=== PATIENT | female | born 1960 | race Caucasian/White ===

== ENCOUNTER 2017-03-21 21:24 | Emergency (ER) | payer OTHER ==
[~2017-03-21] VITALS: Ht 167.6 cm; Wt 78.9 kg
--- NOTE | 2017-03-21 21:35 | NUR ---
Pt to room, changed into gown and placed on monitor. Pt NSR. Pt c/o non radiating chest pain. Denies SOB, denies N/V. Resp even and unlabored. Dr. Miller at bedside, awaiting further orders.
[2017-03-21] MEDS ORDERED: ASPIRIN 81 MG TAB.CHEW PO ONE (21:45)
[2017-03-21] MEDS ORDERED: NITROGLYCERIN OINT 1 GM PACKET TP ONE ×2 (21:45→22:27)
[2017-03-21] MEDS ORDERED: NITROGLYCERIN 0.4 MG/TAB BOTTLE SL ONE ×2 (21:45→22:27)
[2017-03-21 22:16] LABS: BASOPHILS % (AUTO) 0.5 % (0.0-2.0); EOSINOPHILS % (AUTO) 2.1 % (0.0-7.0); HEMATOCRIT 38.6 % (37-47); HEMOGLOBIN 12.8 G/DL (12.0-16.0); LYMPHOCYTES % (AUTO) 31.9 % (20.5-51.5); MEAN CORPUSCULAR HEMOGLOBIN 31.2 UUG (27.0-31.0); MEAN CORPUSCULAR HGB CONC 33 g/dL (32.0-37.0); MEAN CORPUSCULAR VOLUME 93.8 FL (81.0-99.0); MONOCYTES % (AUTO) 8.2 % (0.0-11.0); NEUTROPHILS % (AUTO) 57.3 % (38.5-71.5); PLATELET COUNT (AUTO) 184 K/UL (150-450); RED BLOOD CELL COUNT(AUTO) 4.11 MIL/UL (4.2-5.4); WHITE BLOOD COUNT (AUTO) 5.4 K/UL (4.0-11.2)
[2017-03-21 22:17] LABS: EOSINOPHILS # (AUTO) 0.1 K/uL (0.0-0.7); LYMPHOCYTES # (AUTO) 1.7 K/UL (0.8-4.8); MONOCYTES # (AUTO) 0.4 K/UL (0.1-1.30); NEUTROPHILS # (AUTO) 3.1 K/UL (1.8-8.9)
[2017-03-21 22:21] LABS: CREATININE 0.9 mg/dL (0.6-1.3); POTASSIUM 4.2 mmol/L (3.5-5.1)
[2017-03-21] MEDS ORDERED: ASPIRIN 81 MG TAB.CHEW ONE (22:27)
[2017-03-21 22:33] LABS: BILIRUBIN,DIRECT 0.1 mg/dL (0.0-0.2); BILIRUBIN,TOTAL 0.2 mg/dL (0.2-1.0); TOTAL PROTEIN, SERUM 6.9 g/dL (6.4-8.2)
[2017-03-21] MEDS ORDERED: FOLIC ACID (22:39)
[2017-03-21] MEDS ORDERED: ANTIBIOTIC (22:39)
[2017-03-21] MEDS ORDERED: HRT (22:39)
--- NOTE | 2017-03-21 23:00 | NUR ---
Pt resting in position of comfort for self. Resp even and unlabored. no complaints at this time. Family at bedside. NSR on monitor.
--- NOTE | 2017-03-22 01:15 | NUR ---
Repeat troponin drawn, awaiting results. Pt resting in position of comfort for self. Remains NSR on monitor. No complaints at this time.
--- NOTE | 2017-03-22 02:45 | NUR ---
Pt stable for discharge per Dr. Miller. Pt given ACI. Pt verbalized understanding of dc instructions. Pt ambulated out of ER with steady gait and ride home
[2017-03-22 04:24] VITALS: BP 120/72
== END 2017-03-22 02:45 | disposition home or self-care (01) ==
LOC: ER 21:24
DX: R07.89 Other chest pain (principal); R10.13 Epigastric pain; K80.20 Calculus of gallbladder without cholecystitis without obstruction; N20.0 Calculus of kidney; I51.7 Cardiomegaly; I70.0 Atherosclerosis of aorta
CPT/HCPCS: 36415 ×2; 71010; 76705; 80048; 80076; 83690; 83880; 84484 ×2; 85025; 85379; 93005; 99285; A4663; 70030-TC

== ENCOUNTER 2022-06-03 22:03 | Emergency (ER) | payer OTHER ==
[~2022-06-03] VITALS: Ht 167.6 cm; Wt 75.3 kg
[~2022-06-03 22:03] MED LIST: ANTIBIOTIC; FOLIC ACID; HRT
--- NOTE | 2022-06-03 22:10 | NUR ---
Dr. El at bedside. MSE in progress.
[2022-06-03] MEDS ORDERED: diphenhydrAMINE 50 MG/1 ML VIAL IV ONE (22:30)
[2022-06-03] MEDS ORDERED: FAMOTIDINE. 20 MG/2 ML VIAL IV ONE ×2 (22:30→23:00)
[2022-06-03] MEDS ORDERED: diphenhydrAMINE 50 MG/1 ML VIAL ONE (23:00)
[2022-06-03] MEDS ORDERED: ACETAMINOPHEN 325 MG TABLET PO ONE (23:15)
[2022-06-03] MEDS ORDERED: IBUPROFEN 200 MG TABLET PO ONE (23:15)
[2022-06-03 23:27] LABS: HEMATOCRIT 28.7 % (31.2-41.9); MEAN CORPUSCULAR HEMOGLOBIN 32.8 uug (24.7-32.8); MEAN CORPUSCULAR VOLUME 99.7 fL (75.5-95.3); PLATELET COUNT (AUTO) 133 K/uL (179-408)
[2022-06-03 23:34] LABS: CARBON DIOXIDE 29 mmol/L (21-32); CHLORIDE 104 mmol/L (98-107); CREATININE 0.7 mg/dL (0.6-1.3); GLUCOSE 98 mg/dL (74-106); POTASSIUM 4.2 mmol/L (3.5-5.1); UREA NITROGEN, BLOOD 27 mg/dL (7-18)
[2022-06-03 23:42] LABS: ALANINE AMINOTRANSFERASE 47 U/L (14-59); ALKALINE PHOSPHATASE 81 U/L (50-136); ASPARTATE AMINOTRANSFERASE 19 U/L (15-37); BILIRUBIN,DIRECT 0.1 mg/dL (0.0-0.2); BILIRUBIN,TOTAL 0.2 mg/dL (0.2-1.0); TOTAL PROTEIN, SERUM 6.7 g/dL (6.4-8.2)
[2022-06-04] MEDS ORDERED: hydrOXYzine HCL 25 MG TABLET ONE (00:44)
[2022-06-04] MEDS ORDERED: hydrOXYzine HCL 25 MG TABLET PO ONE (00:45)
[2022-06-04] MEDS ORDERED: HYDR-500 PO (00:51)
--- NOTE | 2022-06-04 01:00 | NUR ---
Patient discharged to home in stable condition. A/O x 4. NAD noted. All belongings with patient. Written and verbal after care instructions given. Patient verbalizes understanding of instructions. Stressed follow up or return to ER for worsening s/s.
[2022-06-04 01:06] VITALS: BP 140/78
== END 2022-06-04 01:00 | disposition home or self-care (01) ==
LOC: ER 22:04
DX: R21 Rash and other nonspecific skin eruption (principal); C34.90 Malignant neoplasm of unspecified part of unspecified bronchus or lung; Z79.899 Other long term (current) drug therapy; R94.31 Abnormal electrocardiogram [ECG] [EKG]
CPT/HCPCS: 99285; 96374; 71045; 96375; 80076; 80048; 85025; 84484; 36415; 93005; J1200; J3490